=== PATIENT | female | born 1995 | race Hispanic/Latino ===

== ENCOUNTER 2019-04-08 07:19 | Outpatient (CLI) | payer MEDICAID ==
[2019-04-08 07:45] VITALS: BP 122/75
[2019-04-08] MEDS ORDERED: PERCOCET 5/325 PO ONE (10:53)
== END 2019-04-08 13:29 | disposition home or self-care (01) ==
LOC: TRG 07:19
PROVIDERS: ATTEND Obstetrics & Gynecology
DX: O47.1 False labor at or after 37 completed weeks of gestation (principal); Z3A.39 39 weeks gestation of pregnancy
CPT/HCPCS: 59025

== ENCOUNTER 2019-04-09 21:47 | Outpatient (CLI) | payer MEDICAID ==
[2019-04-09 22:03] VITALS: BP 118/75
--- NOTE | 2019-04-11 07:17 | Event Note ---
Date: 04/09/19 Triage Note for 04/09/19: 23 year old at 39 6/7 weeks presented to triage to rule out labor. Pt. reports active movement. Denies LOF or VB. NST reactive. Cervix /-2. It was determined that patient was not yet in the active phase of labor so she was discharged home. Instructions to count movements daily and warning signs and signs of active labor were discussed with pt.
== END 2019-04-09 23:51 | disposition home or self-care (01) ==
LOC: TRG 21:47
PROVIDERS: ATTEND Obstetrics & Gynecology
DX: O47.1 False labor at or after 37 completed weeks of gestation (principal); Z3A.40 40 weeks gestation of pregnancy
CPT/HCPCS: 59025

== ENCOUNTER 2019-04-10 02:01 | Inpatient (IN) | payer MEDICAID ==
[2019-04-10] MEDS ORDERED: LACTATED RINGERS 1,000 ML ONE (04:04)
[2019-04-10 04:13] LABS: Basophils # (Auto) 0.1 K/mm3 (0.0-0.1); Basophils % (Auto) 0.7 % (0.0-1.8); Eosinophils # (Auto) 0.1 K/mm3 (0.0-0.4); Eosinophils % (Auto) 0.4 % (0.0-4.3); Hematocrit 35.3 % (30.3-42.9); Hemoglobin 11.9 gm/dl (10.1-14.3); Lymphocytes # (Auto) 2.1 K/mm3 (1.2-5.4); Lymphocytes % (Auto) 15.7 % (13.4-35.0); Mean Corpuscular HGB Conc 34 % (30-34); Mean Corpuscular Volume 82 fl (79-97); Monocytes % (Auto) 7.5 % (0.0-7.3); Platelet Count 217 K/mm3 (140-440); Red Blood Count 4.29 M/mm3 (3.65-5.03); Red Cell Distribution Width 15.2 % (13.2-15.2)
[2019-04-10] MEDS ORDERED: MINERAL OIL PO PRN (04:17)
[2019-04-10] MEDS ORDERED: XYLOCAINE 2% INFILTRATI ONE ×2 (04:17→20:23)
[2019-04-10] MEDS ORDERED: BRETHINE SUB-Q PRN (04:17)
[2019-04-10] MEDS ORDERED: AMPICILLIN/NS 2 GM/100 ML 2 GM/100 ML BAG IV ONE (04:17)
[2019-04-10] MEDS ORDERED: SUBLIMAZE IV PRN (04:17)
[2019-04-10] MEDS: LACTATED RINGERS 1,000 ML IV SCH ×2 (04:39→10:59)
[2019-04-10] MEDS ORDERED: PITOCin/NS 20 UNIT/1000ML DRIP 20 UNITS/1,000 ML BAG IV SCH (05:00)
--- NOTE | 2019-04-10 05:49 | History and Physical Report ---
History of Present Illness Date of examination: 04/10/19 Date of admission: 04/10/19 03:29 Chief complaint: Labor History of present illness: 23 year old presents in labor. LMP 07/06/18. EDC 04/10/19. Patient received care at [facility] and records were able to be accessed. 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 labs are as follows: A+, antibody screen negative, pap negative, rubella immune, hepatitis B surface antigen negative, HIV negative, RPR nonreactive, GC negative, chlamydia positive (VIOLET negative), GBS positive. Past History Past Medical History: no pertinent history Past Surgical History: no surgical history [employer] History: chlamydia (VIOLET negative). denies: abnormal PAP smear, gonorrhea, hepatitis B, hepatitis C, herpes, HIV, syphilis, trichomonas Family/Genetic History: none Social history: single, full code. denies: smoking, alcohol abuse, prescription drug abuse, IV drug use - Obstetrical History Expected Date of Delivery: 04/10/19 Actual Gestation: 40 Week(s) 0 Day(s) : 1 Para: 0 Hx # Term Pregnancies: 0 Number of Pregnancies: 0 Spontaneous Abortions: 0 Induced : 0 Number of Living Children: 0 Medications and Allergies Allergies Allergy/AdvReac Type Severity Reaction Status Date / Time No Known Allergies Allergy Verified 04/08/19 11:01 Home Medications Medication Instructions Recorded Confirmed Last Taken Type No Known Home Medications [No 04/08/19 04/08/19 Unknown History Reported Home Medications] Active Meds: Active Medications Ephedrine Sulfate (Ephedrine Sulfate) 10 mg IV Q2M PRN PRN Reason: Hypotension Fentanyl (Sublimaze) 100 mcg IV Q2H PRN PRN Reason: Labor Pain Last Admin: 04/10/19 04:38 Dose: 100 mcg Documented by: Oxytocin/Sodium Chloride (Pitocin/Ns 20 Unit/1000ml Drip) 20 units in 1,000 mls @ 125 mls/hr IV DIRECT ROSANGELA Lactated Ringer's (Lactated Ringers) 1,000 mls @ 125 mls/hr IV DIRECT ROSANGELA Last Admin: 04/10/19 04:39 Dose: 125 mls/hr Documented by: Ampicillin Sodium (Ampicillin/Ns 1 Gm/50 Ml) 1 gm in 50 mls @ 100 mls/hr IV Q4HR ROSANGELA; Protocol Mineral Oil (Mineral Oil) 30 ml PO QHS PRN PRN Reason: Constipation Terbutaline Sulfate (Brethine) 0.25 mg SUB-Q ONCE PRN PRN Reason: Hyperstimulation/Hypertonicity Review of Systems All systems: negative (contractions) - Vital Signs Vital signs: Vital Signs Pulse BP 76 135/82 04/10/19 02:15 04/10/19 02:15 Temp Pulse Resp BP Pulse Ox 76 135/82 04/10/19 02:15 04/10/19 02:15 - Physical Exam Abdomen: Positive: normal appearance, soft. Negative: distention, tenderness, g uarding, rigidity Genitourinary (Female): Positive: normal external genitalia, normal perenium. Negative: perineal/vulvar lesions Vagina: Positive: normal moisture Uterus: Positive: enlarged (s=d) Anus/Rectum: Positive: normal perianal skin Extremities: Positive: normal. Negative: tenderness, edema - Obstetrical FHR: category 1 Uterine Contraction Monitor Mode: External Cervical Dilatation: 4.5 Cervical Effacement Percentage: 90 station: 0 Results Result Diagrams: 04/10/19 03:55 Abnormal lab results 04/10/19 Range/Units 03:55 WBC 13.1 H (4.5-11.0) K/mm3 Garvin % (Auto) 7.5 H (0.0-7.3) % Garvin # 1.0 H (0.0-0.8) K/mm3 Seg Neutrophils % 75.7 H (40.0-70.0) % Seg Neutrophils # 9.9 H (1.8-7.7) K/mm3 All other labs normal. Assessment and Plan A: at 40 weeks gestation. Active labor. GBS positive. P: Admit. GBS prophylaxis. Epidural if desired. Anticipate vaginal .
[2019-04-10] MEDS ORDERED: NARCAN 2 MG/2 ML IV PRN (06:41)
--- NOTE | 2019-04-10 06:41 | Anesthesia Consultation ---
Anesthesia Consult and Med Hx Date of service: 04/10/19 - Airway Anesthetic Teeth Evaluation: Good ROM Head & Neck: Adequate Mental/Hyoid Distance: Adequate Mallampati Class: Class II Intubation Access Assessment: Probably Good - Pulmonary Exam CTA: Yes - Cardiac Exam Cardiac Exam: RRR - Pre-Operative Health Status ASA Pre-Surgery Classification: ASA2 Proposed Anesthetic Plan: Epidural - Pulmonary Hx Asthma: No - Cardiovascular System Hx Hypertension: No - Central Nervous System Hx Seizures: No Hx Psychiatric Problems: No - Endocrine Hx Renal Disease: No Hx Hypothyroidism: No Hx Hyperthyroidism: No - Hematic Hx Anemia: No Hx Sickle Cell Disease: No - Other Systems Hx Alcohol Use: No
[2019-04-10] MEDS: fentaNYL-BUPIV 2 MCG/ML-0.125% 200 MCG/100 ML BAG EPIDURAL SCH ×2 (07:36→15:13)
[2019-04-10] MEDS ORDERED: AMPICILLIN/NS 1 GM/50 ML 1 GM/50 ML BAG IV SCH (09:23)
--- NOTE | 2019-04-10 10:55 | Event Note ---
Date: 04/10/19 At last vaginal exam, cervix is 5.5/95/0. Category 1 heart rate tracing. Discussed with patient risks and benefits of Pitocin augmentation of labor. Contractions have spaced some after epidural. Pitocin augmentation of labor ordered for patient.
[2019-04-10] MEDS ORDERED: PITOCin/NS 30 UNIT/500ML 30 UNITS/500 ML BAG IV SCH (11:00)
--- NOTE | 2019-04-10 14:21 | Event Note ---
Date: 04/10/19 SVE: 0.
--- NOTE | 2019-04-10 15:50 | Event Note ---
Date: 04/10/19 SVE 7.5/100/0.
--- NOTE | 2019-04-10 19:30 | Event Note ---
Date: 04/10/19 SVE 9.5/100/0.
[2019-04-10] MEDS ORDERED: ZOFRAN IV ONE (20:04)
[2019-04-10] MEDS ORDERED: LANSINOH TP PRN (22:34)
[2019-04-10] MEDS ORDERED: TUCKS PAD TP PRN (22:34)
[2019-04-10] MEDS ORDERED: MILK OF MAGNESIA PO PRN (22:34)
[2019-04-10] MEDS ORDERED: NORCO 5/325 PO PRN (22:34)
--- NOTE | 2019-04-10 22:45 | Procedure Note ---
OB Delivery Note - Delivery Date of Delivery: 04/10/19 Surgeon: LIANNE BATES Estimated blood loss: other (250 cc) - Vaginal Delivery presentation: vertex Delivery position: OA Intrapartum events: none Delivery induction: none Delivery augmentation: rupture of membranes, pitocin Delivery monitor: external FHT, external uterine Route of delivery: Delivery placenta: spontaneous Delivery cord: nuchal cord (nuchal cord times 3; body cord), 3 umbilical vessels Episiotomy: midline Delivery repair: vicryl Anesthesia: epidural Delivery comments: Spontaneous vaginal delivery at 21:17 of liveborn male infant weighing 7 lb. over 2nd degree midline episiotomy with apgars of 8/9. Epidural anesthesia. Triple nuchal cord manually reduced; body cord. Baby placed immediately skin to skin with mom after . Spontaneous cry and respirations. Baby bulb suctioned and dried. 3 vessel cord double clamped and cut after cessation of pulsation. Spontaneous delivery of intact placenta and membranes; EBL 250 cc. Pitocin to IV fluids after delivery of placenta. Fundus firm and midline. 2nd degree midline episiotomy repaired with 2-0 vicryl in usual sterile fashion. No other lacerations noted. Vaginal sweep negative. Sponge count correct. Mother and baby stable.
[2019-04-10] MEDS ORDERED: CLEOCIN 900 MG/50 mL 900 MG/50 ML BAG IV SCH (23:00)
[2019-04-10] MEDS ORDERED: SODIUM CHLORIDE FLUSH SYRINGE 10 ML IV PRN (23:00)
[2019-04-10 23:22] LABS: Alanine Aminotransferase 10 units/L (7-56); Albumin 3.6 g/dL (3.9-5); BUN/Creatinine Ratio 18; Blood Urea Nitrogen 7 mg/dL (7-17); Calcium 9.2 mg/dL (8.4-10.2); Hemolysis Index 14
[2019-04-11] MEDS: IBUPROFEN PO SCH ×5 (01:44→23:38)
[2019-04-11] MEDS ORDERED: DERMOPLAST TP PRN (09:00)
--- NOTE | 2019-04-11 10:15 | Progress Note ---
Assessment and Plan - Patient Problems (1) Status post normal vaginal delivery Current Visit: Yes Status: Acute Plan to address problem: PPD 1 - stable Continue routine orders Anticipate discharge in 24 to 48 hours (2) Uncontrolled pain Current Visit: Yes Status: Acute Plan to address problem: s/p second degree midline episiotomy Dermoplast, Tucks pads ordered prn Subjective - Subjective Date of service: 04/11/19 Principal diagnosis: PPD #1; s/p Interval history: see H&P, Event Notes and OB Delivery Procedure Note Patient reports: appetite normal, voiding normally, pain poorly controlled (pain level 7/10 at perineum), ambulating normally, no dizzy ambulation, no bowel movement Marsing: doing well, nursing well Objective - Vital Signs Latest vital signs: Vital Signs Temp Pulse Resp BP BP Pulse Ox 04/11/19 08:14 97.9 F 62 18 102/57 04/11/19 04:13 97.8 F 69 16 107/59 95 04/11/19 01:35 97.9 F 78 18 114/62 100 04/10/19 23:24 90 118/76 04/10/19 23:10 91 H 116/77 04/10/19 22:54 83 111/63 04/10/19 22:39 77 112/62 04/10/19 22:24 73 106/59 04/10/19 22:09 72 105/57 04/10/19 21:33 90 04/10/19 21:32 63 86 04/10/19 21:27 63 84 04/10/19 21:22 75 87 04/10/19 21:19 96 H 99 04/10/19 21:14 75 100 04/10/19 21:09 71 99 04/10/19 21:04 76 100 04/10/19 20:59 91 H 99 04/10/19 20:54 77 100 04/10/19 20:49 75 99 04/10/19 20:07 111 H 97 04/10/19 20:02 113 H 97 04/10/19 19:57 86 98 04/10/19 19:56 73 124/76 04/10/19 19:52 90 16 97 04/10/19 19:47 101 H 99 04/10/19 19:42 95 H 98 04/10/19 19:40 96 H 129/77 08/18/19 19:37 95 H 95 0818/19 19:32 115 H 98 18/19 19:27 96 H 98 18/19 19:25 82 131/79 0818/19 19:22 87 98 0818/19 19:19 89 93 18/19 19:17 88 99 18/19 19:12 81 99 18/19 19:10 77 125/68 18/19 19:07 94 H 98 18/19 19:02 72 98 18/19 18:57 91 H 99 18/19 18:56 73 121/61 18/19 18:52 77 96 18/19 18:47 84 99 18/19 18:42 82 96 18/19 18:41 68 112/67 18/19 18:37 83 98 18/19 18:32 70 97 18/19 18:27 75 97 18/19 18:25 74 114/68 18/19 18:22 83 98 18/19 18:17 75 97 18/19 18:12 78 106/66 98 18/19 18:07 79 95 18/19 18:02 74 97 18/19 17:57 74 98 18/19 17:56 78 112/67 18/19 17:52 76 96 18/19 17:47 79 97 18/19 17:42 71 96 18/19 17:41 70 107/64 18/19 17:37 77 97 18/19 17:32 85 97 18/19 17:27 72 96 18/19 17:25 88 116/57 18/19 17:22 74 97 18/19 17:17 87 97 18/19 17:12 77 97 18/19 17:11 84 111/67 18/19 17:07 69 97 18/19 17:02 77 96 18/19 16:57 66 97 18/19 16:56 68 120/62 18/19 16:52 67 95 18/19 16:47 66 96 18/19 16:42 70 95 08/18/19 16:40 67 111/64 08/18/19 16:37 70 97 08/18/19 16:32 71 99 08/18/19 16:27 62 100 08/18/19 16:26 68 115/71 0818/19 16:22 66 99 08/18/19 16:17 69 100 08/18/19 16:12 82 99 08/18/19 16:11 81 129/78 0818/19 16:07 83 98 18/19 16:02 83 97 18/19 15:57 81 117/70 98 08/18/19 15:52 80 98 /18/19 15:47 104 H 97 18/19 15:42 90 95 18/19 15:41 82 117/62 18/19 15:37 103 H 97 18/19 15:36 79 92 /18/19 15:32 84 97 /18/19 15:27 88 96 18/19 15:26 81 108/63 18/19 15:22 82 98 18/19 15:17 81 98 18/19 15:12 73 96 18/19 15:10 81 112/62 18/19 15:07 81 97 18/19 15:02 91 H 96 18/19 14:57 77 97 18/19 14:55 78 111/65 18/19 14:52 82 98 /18/19 14:47 83 97 18/19 14:42 93 H 97 18/19 14:40 83 108/69 18/19 14:37 72 97 18/19 14:34 92 H 94 18/19 14:32 102 H 98 18/19 14:27 92 H 98 18/19 14:26 91 H 132/74 0818/19 14:22 100 H 98 18/19 14:17 100 H 98 0818/19 14:16 100 H 93 08/18/19 14:12 95 H 99 /18/19 14:11 91 H 94 /18/19 14:10 87 114/78 18/19 14:07 92 H 97 18/19 14:02 107 H 98 08/18/19 13:57 75 97 04/10/19 13:56 97 H 114/81 04/10/19 13:52 101 H 97 18 13:47 91 H 97 04/10/19 13:42 83 98 04/10/19 13:40 79 112/66 04/10/19 13:37 87 97 04/10/19 13:32 82 97 04/10/19 13:27 88 98 04/10/19 13:26 77 111/66 04/10/19 13:22 98 H 98 04/10/19 13:17 98 H 97 04/10/19 13:12 92 H 99 04/10/19 13:10 86 112/57 04/10/19 13:07 86 98 04/10/19 13:04 95 H 91 04/10/19 13:02 94 H 99 04/10/19 12:57 91 H 92 04/10/19 12:55 107 H 110/71 04/10/19 12:52 95 H 98 04/10/19 12:47 98 H 98 04/10/19 12:42 83 98 04/10/19 12:41 85 102/64 04/10/19 12:37 79 98 04/10/19 12:32 85 97 04/10/19 12:27 75 120/75 99 04/10/19 12:22 84 98 04/10/19 12:17 74 98 04/10/19 12:12 73 126/78 97 04/10/19 12:07 96 H 98 04/10/19 12:02 83 98 04/10/19 11:57 84 99 04/10/19 11:56 77 141/81 04/10/19 11:52 84 99 04/10/19 11:47 30 L 100 04/10/19 11:40 61 116/67 04/10/19 11:25 86 108/60 04/10/19 11:10 82 103/59 04/10/19 10:55 74 99/55 04/10/19 10:40 65 115/54 04/10/19 10:25 78 96/56 Intake and Output 04/10/1904/11/04/11/19 23:59 07:59 15:59 Intake Total 480 Output Total 500 Balance -500 480 Intake: Oral 480 Output: Urine 500 Indwelling Catheter 500 Other: Total, Intake Amount 480 Total, Output Amount 500 Estimated Blood Loss 250 - Exam Abdomen: Present: normal appearance, soft Vulva: both: laceration/episiotomy (well approximated) Uterus: Present: normal, firm, fundal height below umbilicus Extremities: Present: normal Comments: small lochia - Labs Labs: Abnormal lab results 04/10/19 Range/Units 03:55 Sodium 136 L (137-145) mmol/L Carbon Dioxide 21 L (22-30) mmol/L Creatinine 0.4 L (0.7-1.2) mg/dL Alkaline Phosphatase 202 H (35-129) units/L Total Protein 6.1 L (6.3-8.2) g/dL Albumin 3.6 L (3.9-5) g/dL
[2019-04-11 12:56] LABS: Hematocrit 28.8 % (30.3-42.9); Hemoglobin 9.8 gm/dl (10.1-14.3)
[2019-04-12] MEDS: IBUPROFEN PO SCH ×2 (05:34→15:40)
[2019-04-12] MEDS ORDERED: FEOSOL PO SCH (10:00)
--- NOTE | 2019-04-12 10:06 | Discharge Summary ---
Providers - Providers Date of Admission: 04/10/19 03:29 Date of discharge: 04/12/19 (1600) Attending physician: GUILLERMO LEAL MD Primary care physician: GUILLERMO LEAL MD Hospitalization Reason for admission: active labor Delivery: Episiotomy: midline (healing as expected) Other procedures: none complications: none Discharge diagnosis: IUP at term delivered baby: male Hospital course: See admission H & P, OB delivery summary, and PP progress reports Condition at discharge: Good Disposition: DC-01 TO HOME OR SELFCARE - Discharge Diagnoses (1) Status post normal vaginal delivery Status: Acute (2) Anemia Status: Acute Qualifiers: Anemia type: other cause Other causes of anemia: acute posthemorrhagic Qualified Code(s): D62 - Acute posthemorrhagic anemia Plan - Discharge Medications Prescriptions: Ferrous Sulfate [Ferrous Sulfate 324 MG] 324 mg PO BID 30 Days #60 tab - Provider Discharge Summary Activity: routine, no sex for 6 weeks, no heavy lifting 4 weeks, no strenuous exercise Diet: other (iron rich diet) Instructions: routine Additional instructions: [] Smoking cessation referral if applicable(refer to patient education folder for contact #) [] Refer to [facility] Booklet Call your doctor immediately for: * Fever > 100.5 * Heavy vaginal bleeding ( >1 pad per hour) * Severe persistent headache * Shortness of breath * Reddened, hot, painful area to leg or breast * Drainage or odor from incision. * Keep incision clean and dry at all times and follow doctor's instructions regarding bathing/showering * Continue daily oral iron supplementation as ordered - Follow up plan Follow up: GUILLERMO LEAL MD [Primary Care Provider] - 7 Days
[2019-04-12 16:37] VITALS: BP 118/78
== END 2019-04-12 20:00 | disposition home or self-care (01) | DRG 775 ==
LOC: TRG 02:01 → LD 03:29 → EEVIPCON 03:29 → OB 04-11 01:23
PROVIDERS: ADMIT Obstetrics & Gynecology; ATTEND Obstetrics & Gynecology
PROC: 10E0XZZ Delivery of Products of Conception, External Approach (ICD-10-PCS; principal; 2019-04-10)
PROC: 0KQM0ZZ Repair Perineum Muscle, Open Approach (ICD-10-PCS; 2019-04-10)
PROC: 3E0R3BZ Introduction of Anesthetic Agent into Spinal Canal, Percutaneous Approach (ICD-10-PCS; 2019-04-10)
PROC: 00HU33Z Insertion of Infusion Device into Spinal Canal, Percutaneous Approach (ICD-10-PCS; 2019-04-10)
PROC: 0W8NXZZ Division of Female Perineum, External Approach (ICD-10-PCS; 2019-04-10)
DX: O99.824 Streptococcus B carrier state complicating childbirth (principal); Z37.0 Single live birth; Z3A.40 40 weeks gestation of pregnancy; O70.1 Second degree perineal laceration during delivery; D62 Acute posthemorrhagic anemia; O69.81X0 Labor and delivery complicated by cord around neck, without compression, not applicable or unspecified; O90.81 Anemia of the puerperium
CPT/HCPCS: 36415; 59025; 80053; 83036; 85014; 85018; 85025; 86592; 86850; 86900; 86901; 96360; 96361; 96365; 96374; G0378; A6250; J0290; J2405; J2590; J3010; J7120